=== PATIENT | male | born 1945 | race Caucasian/White ===

== ENCOUNTER → 2016-09-25 | Outpatient (CLI) | payer MEDICARE ==
[2016-09-25 09:16] LABS: EST GLOM FILT AFRICAN AMERICAN > 60 ml/min
== END | disposition home or self-care (01) ==
LOC: LAB 08:36 → CT 08:36
PROVIDERS: Radiology Diagnostic Radiology
DX: R42 Dizziness and giddiness (principal); E87.8 Other disorders of electrolyte and fluid balance, not elsewhere classified

== ENCOUNTER → 2016-10-09 | Outpatient (CLI) | payer MEDICARE | END | disposition home or self-care (01) | LOC: US 10-01 04:15 | DX: I65.23 Occlusion and stenosis of bilateral carotid arteries (principal) ==

== ENCOUNTER 2016-12-31 18:51 | Emergency (ER) | payer MEDICARE ==
[~2016-12-31] VITALS: Ht 177.8 cm; Wt 113.4 kg
[2016-12-31 19:28] LABS: BASO # 0.1 10*3/uL (0.0-0.1); BASO % 0.9 % (0.0-1.0); EOS % 10.4 % (1.0-4.0); HEMATOCRIT 43.9 % (42.0-52.0); HEMOGLOBIN 14.7 g/dl (14.0-18.0); LYMPH % 30.8 % (27.0-41.0); MEAN CORPUSCULAR HGB 31.1 pg (27.0-31.0); MEAN CORPUSCULAR HGB CONC 33.5 g/dl (33.0-37.0); MEAN PLATELET VOLUME 11.4 fl (9.6-12.3); MONO # 0.6 10*3/uL (0.1-1.0); MONO % 6.5 % (3.0-9.0); NEUT % 51.1 % (47.0-73.0); PLATELET COUNT AUTOMATED 184 10*3/uL (130-400); RED BLOOD COUNT 4.72 10*6/uL (4.50-5.90); RED CELL DISTRI WIDTH 12.7 % (0-14.5); WHITE BLOOD COUNT 9.7 10*3/uL (4.8-10.8)
[2016-12-31 19:41] LABS: ACT PARTIAL THROMBO TIME 25.6 SECONDS (20.8-31.5)
[2016-12-31 19:44] LABS: ALBUMIN 3.4 gm/dl (3.1-4.5); ALKALINE PHOSPHATASE 81 U/L (45-117); BUN 7 mg/dl (7-24); CHLORIDE 101 mmol/L (98-107); CREATININE 0.85 mg/dL (0.70-1.30); LIPASE 169 U/L (73-393); MAGNESIUM 2.2 mg/dL (1.5-2.1); SGOT/AST 13 IU/L (3-35); SGPT/ALT 21 U/L (12-78); SODIUM 135 mmol/L (136-145); TOTAL PROTEIN 7.3 gm/dL (6.4-8.2)
[2016-12-31 19:49] LABS: TROPONIN I < 0.015 ng/ml (<0.045)
[2016-12-31] MEDS ORDERED: ASPIR-TRIN325 MG PO (21:15)
[2016-12-31] MEDS ORDERED: CARDIZEM CD180 MG PO (21:33)
[2016-12-31] MEDS ORDERED: ZESTRIL20 MG PO (21:33)
[2016-12-31] MEDS ORDERED: BETAPACE80 MG PO (21:34)
[2016-12-31] MEDS ORDERED: CELEXA10 MG PO (21:35)
[2016-12-31] MEDS ORDERED: LANOXIN250 MCG PO (21:36)
[2016-12-31] MEDS ORDERED: TRAZODONE150 MG PO (21:36)
[2016-12-31] MEDS ORDERED: OMEPRAZOLE40 MG PO (21:37)
[2016-12-31] MEDS ORDERED: SIMVASTATIN40 MG PO (21:38)
[2016-12-31] MEDS ORDERED: XANAX XR0.5 MG PO (21:40)
[2016-12-31 22:00] LABS: BILIRUBIN NEGATIVE (NEGATIVE); BLOOD NEGATIVE (NEGATIVE); CLARITY CLEAR (CLEAR); COLOR YELLOW (YELLOW); GLUCOSE TRACE (NEGATIVE); KETONE NEGATIVE (NEGATIVE); LEUKO ESTERASE TRACE (NEGATIVE); NITRITE NEGATIVE (NEGATIVE); PH 5.5 (5.0-9.0); SPECIFIC GRAVITY 1.015 (1.005-1.030); UROBILINOGEN 0.2 E.U./dl (0.2-1.0)
[2016-12-31 22:02] VITALS: BP 152/64
[2016-12-31 22:07] LABS: BACTERIA TRACE; MUCOUS 2+
== END 2016-12-31 22:04 | disposition short-term general hospital (02) ==
LOC: ED 18:51
PROVIDERS: Emergency Medicine
DX: I63.9 Cerebral infarction, unspecified (principal); Z90.49 Acquired absence of other specified parts of digestive tract; Z95.1 Presence of aortocoronary bypass graft; Z98.890 Other specified postprocedural states; Z79.82 Long term (current) use of aspirin; Z79.899 Other long term (current) drug therapy

== ENCOUNTER → 2017-01-05 | Outpatient (CLI) | payer MEDICARE ==
[~2017-01-05] MED LIST: ASPIR-TRIN325 MG PO; BETAPACE80 MG PO; CARDIZEM CD180 MG PO; CELEXA10 MG PO; LANOXIN250 MCG PO; OMEPRAZOLE40 MG PO; SIMVASTATIN40 MG PO; TRAZODONE150 MG PO; XANAX XR0.5 MG PO; ZESTRIL20 MG PO
--- NOTE | ~2017-01-05 | HM ---
[place], [place] HOLTER MONITOR REPORT NAME: [facility]: [id number] UNIT #: [id number] ROOM: DOCTOR: CARLTON HUITRON MD BIRTHDATE: [birth year] DOS: A 48-hour Holter monitor repot. Study was recorded from January 05 through to 01/07/2017. The recording was analyzed. INDICATIONS: Possible atrial fibrillation. FINDINGS: The patient was recorded by Holter device for 48 hours. He was in sinus rhythm throughout the examination. The average heart rate was 50 beats per minute and heart rates varied from 40 to 82 beats per minute while the recording was running. The patient had rare premature ventricular contractions with rare couplets and a single triplet recorded. No ventricular tachycardia was seen. Occasional premature atrial contractions were recorded. Rare atrial couplets were seen. No SVT was recorded. No atrial fibrillation was recorded. No prolonged pauses were seen. No diary was returned. IMPRESSION: Sinus bradycardia with an average heart rate of 50 beats per minute. No significant ventricular or supraventricular arrhythmias recorded. No atrial fibrillation recorded. No diary returned. CARLTON HUITRON MD CM:HOLTER:HOLTER MONITOR REPORT 33 30 EMERSON HUITRON MD
== END | disposition home or self-care (01) ==
LOC: CARD 08:10
DX: I48.91 Unspecified atrial fibrillation (principal)

== ENCOUNTER → 2019-09-30 | Outpatient (CLI) | payer MEDICARE | END | disposition home or self-care (01) | LOC: COVID19 08:12 | DX: R50.9 Fever, unspecified (principal); Z20.828 Contact with and (suspected) exposure to other viral communicable diseases ==

== ENCOUNTER 2020-03-19 13:01 | Inpatient (IN) | payer MEDICARE ==
[~2020-03-19] VITALS: Ht 177.8 cm; Wt 99.9 kg
[2020-03-19 13:02] VITALS: BP 122/71
[2020-03-19 13:41] LABS: BASO % 0.3 % (0.0-1.0); EOS # 0.1 10*3/uL (0.0-0.4); EOS % 0.8 % (1.0-4.0); HEMATOCRIT 35.8 % (42.0-52.0); LYMPH # 0.7 10*3/uL (1.3-4.4); LYMPH % 7.4 % (27.0-41.0); MEAN CELL VOLUME 91.8 fl (80.0-94.0); MEAN CORPUSCULAR HGB 29.7 pg (27.0-31.0); MEAN CORPUSCULAR HGB CONC 32.4 g/dl (33.0-37.0); MEAN PLATELET VOLUME 10.6 fl (9.6-12.3); MONO # 0.5 10*3/uL (0.1-1.0); MONO % 5.3 % (3.0-9.0); NEUT # 8.1 10*3/uL (2.3-7.9); NEUT % 85.8 % (47.0-73.0); PLATELET COUNT AUTOMATED 230 10*3/uL (130-400); RED CELL DISTRI WIDTH 15.4 % (0-14.5); WHITE BLOOD COUNT 9.5 10*3/uL (4.8-10.8)
[2020-03-19] MEDS ORDERED: NEURONTIN600 MG PO (13:43)
[2020-03-19] MEDS ORDERED: LIPITOR80 MG PO (13:44)
[2020-03-19] MEDS ORDERED: ELIQUIS5 M1 PO (13:44)
[2020-03-19] MEDS ORDERED: ZESTRIL2.5 MG PO (13:45)
[2020-03-19] MEDS ORDERED: PROTONIX IV40 MG IV (13:47)
[2020-03-19] MEDS ORDERED: ALDACTONE25 M1 PO (13:48)
[2020-03-19] MEDS ORDERED: Mysoline50 MG PO (13:48)
[2020-03-19] MEDS ORDERED: ZOLPIDEM10 MG PO (13:49)
[2020-03-19] MEDS ORDERED: TOPROL XL25 MG PO (13:51)
[2020-03-19 13:52] LABS: ALBUMIN 2.5 gm/dl (3.1-4.5); ALKALINE PHOSPHATASE 123 U/L (45-117); BUN 18 mg/dl (7-24); CHLORIDE 103 mmol/L (98-107); CREATININE 0.72 mg/dL (0.70-1.30); POTASSIUM 3.5 mmol/L (3.5-5.1); SGOT/AST 81 IU/L (3-35); SGPT/ALT 38 U/L (12-78); SODIUM 135 mmol/L (136-145); TOTAL PROTEIN 6.9 gm/dL (6.4-8.2)
[2020-03-19] MEDS ORDERED: SYNTHROID25 MCG PO (13:56)
[2020-03-19] MEDS ORDERED: ZOLOFT100 MG PO (13:57)
[2020-03-19] MEDS ORDERED: MOVE FREE ULTR1 EAC2 PO (13:58)
[2020-03-19] MEDS ORDERED: GLUCOTROL10 MG PO (13:59)
[2020-03-19 14:04] LABS: TROPONIN I 0.411 ng/ml (<0.045)
[2020-03-19] MEDS ORDERED: VITAMIN D350 MC3 PO (14:06)
[2020-03-19] MEDS ORDERED: LASIX20 MG PO (14:07)
[2020-03-19] MEDS ORDERED: HYDROCODON-ACE1 EACH PO (14:08)
[2020-03-19 15:13] VITALS: BP 128/50
[2020-03-19 16:32] VITALS: BP 122/54
[2020-03-19 17:13] VITALS: BP 113/72
[2020-03-19 18:53] VITALS: BP 126/51
[2020-03-20] VITALS (14 sets, daily range): BP systolic 91–127; BP diastolic 25–72
[2020-03-20 18:23] LABS: ABG BASE EXCESS 2.3 mmol/L (-2.0-2.0); ARTERIAL BLOOD GAS PH 7.446 (7.35-7.45)
[2020-03-21] VITALS: BP 110/46
[2020-03-21 07:33] LABS: HEMATOCRIT 36.6 % (42.0-52.0); MEAN CELL VOLUME 92.2 fl (80.0-94.0); MEAN CORPUSCULAR HGB 29.5 pg (27.0-31.0); MEAN PLATELET VOLUME 10.7 fl (9.6-12.3); PLATELET COUNT AUTOMATED 257 10*3/uL (130-400); RED BLOOD COUNT 3.97 10*6/uL (4.50-5.90); WHITE BLOOD COUNT 10.7 10*3/uL (4.8-10.8)
[2020-03-21 08:00] VITALS: BP 122/60
[2020-03-21 08:04] LABS: ALBUMIN 2.3 gm/dl (3.1-4.5); BUN 21 mg/dl (7-24); CHLORIDE 101 mmol/L (98-107); POTASSIUM 3.5 mmol/L (3.5-5.1); SGOT/AST 87 IU/L (3-35); SGPT/ALT 39 U/L (12-78); SODIUM 135 mmol/L (136-145)
[2020-03-21 08:09] LABS: ALKALINE PHOSPHATASE 127 U/L (45-117); CPK 310 U/L (39-308); LDH 360 U/L (87-241); TOTAL PROTEIN 6.9 gm/dL (6.4-8.2)
[2020-03-21 08:40] LABS: BURR CELLS MODERATE; PLATELET SUFFICIENCY NORMAL (NORMAL); POLYCHROMASIA SLIGHT; SCHISTOCYTES FEW; TOTAL CELLS COUNTED 100 #CELLS
[2020-03-21 12:00] VITALS: BP 120/60
[2020-03-21 16:00] VITALS: BP 95/49
[2020-03-21 20:00] VITALS: BP 119/93
[2020-03-22] VITALS: BP 102/33
[2020-03-22 06:12] LABS: BASO % 0.1 % (0.0-1.0); EOS % 0.1 % (1.0-4.0); HEMATOCRIT 35.4 % (42.0-52.0); LYMPH # 0.7 10*3/uL (1.3-4.4); LYMPH % 4.8 % (27.0-41.0); MEAN CELL VOLUME 91.7 fl (80.0-94.0); MEAN CORPUSCULAR HGB 29.8 pg (27.0-31.0); MEAN CORPUSCULAR HGB CONC 32.5 g/dl (33.0-37.0); MEAN PLATELET VOLUME 10.8 fl (9.6-12.3); MONO # 0.8 10*3/uL (0.1-1.0); MONO % 5.6 % (3.0-9.0); NEUT # 12.2 10*3/uL (2.3-7.9); NEUT % 88.9 % (47.0-73.0); PLATELET COUNT AUTOMATED 251 10*3/uL (130-400); RED BLOOD COUNT 3.86 10*6/uL (4.50-5.90); WHITE BLOOD COUNT 13.7 10*3/uL (4.8-10.8)
[2020-03-22 06:48] LABS: ALBUMIN 2.2 gm/dl (3.1-4.5); BUN 25 mg/dl (7-24); CHLORIDE 102 mmol/L (98-107); POTASSIUM 3.3 mmol/L (3.5-5.1); SGPT/ALT 53 U/L (12-78); SODIUM 137 mmol/L (136-145)
[2020-03-22 06:53] LABS: ALKALINE PHOSPHATASE 135 U/L (45-117); CREATININE 0.59 mg/dL (0.70-1.30); LDH 406 U/L (87-241); SGOT/AST 119 IU/L (3-35); TOTAL PROTEIN 6.5 gm/dL (6.4-8.2)
[2020-03-22 07:02] LABS: CPK 408 U/L (39-308)
[2020-03-22 08:00] VITALS: BP 100/58
[2020-03-22 12:00] VITALS: BP 112/71
[2020-03-22 16:00] VITALS: BP 101/61
[2020-03-22 20:00] VITALS: BP 104/55
[2020-03-23] VITALS: BP 112/45
[2020-03-23 06:44] LABS: BASO % 0.1 % (0.0-1.0); EOS % 0.1 % (1.0-4.0); HEMATOCRIT 35.2 % (42.0-52.0); LYMPH # 0.6 10*3/uL (1.3-4.4); LYMPH % 5.4 % (27.0-41.0); MEAN CORPUSCULAR HGB 28.9 pg (27.0-31.0); MEAN CORPUSCULAR HGB CONC 31.8 g/dl (33.0-37.0); MEAN PLATELET VOLUME 11.2 fl (9.6-12.3); MONO # 0.6 10*3/uL (0.1-1.0); MONO % 5.1 % (3.0-9.0); NEUT # 10.2 10*3/uL (2.3-7.9); NEUT % 88.4 % (47.0-73.0); PLATELET COUNT AUTOMATED 243 10*3/uL (130-400); RED BLOOD COUNT 3.87 10*6/uL (4.50-5.90); WHITE BLOOD COUNT 11.5 10*3/uL (4.8-10.8)
[2020-03-23 07:16] LABS: ALBUMIN 2.1 gm/dl (3.1-4.5); BUN 28 mg/dl (7-24); CHLORIDE 102 mmol/L (98-107); CREATININE 0.61 mg/dL (0.70-1.30); POTASSIUM 3.3 mmol/L (3.5-5.1); SGOT/AST 98 IU/L (3-35); SGPT/ALT 46 U/L (12-78); SODIUM 137 mmol/L (136-145); TOTAL PROTEIN 6.2 gm/dL (6.4-8.2)
[2020-03-23 07:19] LABS: ALKALINE PHOSPHATASE 127 U/L (45-117); LDH 437 U/L (87-241)
[2020-03-23 07:40] LABS: CPK 228 U/L (39-308)
[2020-03-23 08:00] VITALS: BP 101/50
[2020-03-23 12:00] VITALS: BP 108/50
[2020-03-23 16:00] VITALS: BP 102/50
[2020-03-23 16:53] LABS: ABG BASE EXCESS 5.2 mmol/L (-2.0-2.0); ARTERIAL BLOOD GAS PH 7.464 (7.35-7.45)
[2020-03-23 20:00] VITALS: BP 117/68
[2020-03-24] VITALS: BP 90/48
[2020-03-24 06:12] LABS: EOS # 0.1 10*3/uL (0.0-0.4); EOS % 0.8 % (1.0-4.0); HEMATOCRIT 33.5 % (42.0-52.0); LYMPH # 0.8 10*3/uL (1.3-4.4); LYMPH % 7.2 % (27.0-41.0); MEAN CELL VOLUME 91.3 fl (80.0-94.0); MEAN CORPUSCULAR HGB CONC 32.8 g/dl (33.0-37.0); MEAN PLATELET VOLUME 11.2 fl (9.6-12.3); MONO # 0.5 10*3/uL (0.1-1.0); MONO % 4.3 % (3.0-9.0); NEUT # 9.4 10*3/uL (2.3-7.9); NEUT % 87.1 % (47.0-73.0); PLATELET COUNT AUTOMATED 239 10*3/uL (130-400); RED BLOOD COUNT 3.67 10*6/uL (4.50-5.90); RED CELL DISTRI WIDTH 15.1 % (0-14.5); WHITE BLOOD COUNT 10.8 10*3/uL (4.8-10.8)
[2020-03-24 08:00] VITALS: BP 129/55
[2020-03-24 12:00] VITALS: BP 107/54
[2020-03-24 16:00] VITALS: BP 117/65
[2020-03-24 20:00] VITALS: BP 101/53
[2020-03-25] VITALS: BP 116/65
[2020-03-25 06:41] LABS: EOS # 0.2 10*3/uL (0.0-0.4); EOS % 1.2 % (1.0-4.0); HEMATOCRIT 35.2 % (42.0-52.0); LYMPH # 0.8 10*3/uL (1.3-4.4); MEAN CELL VOLUME 90.5 fl (80.0-94.0); MEAN CORPUSCULAR HGB 29.8 pg (27.0-31.0); MEAN PLATELET VOLUME 11.3 fl (9.6-12.3); MONO # 0.4 10*3/uL (0.1-1.0); MONO % 3.3 % (3.0-9.0); NEUT # 11.5 10*3/uL (2.3-7.9); NEUT % 88.8 % (47.0-73.0); PLATELET COUNT AUTOMATED 268 10*3/uL (130-400); RED BLOOD COUNT 3.89 10*6/uL (4.50-5.90); WHITE BLOOD COUNT 12.9 10*3/uL (4.8-10.8)
[2020-03-25 06:56] LABS: ALKALINE PHOSPHATASE 123 U/L (45-117); BUN 31 mg/dl (7-24); CHLORIDE 99 mmol/L (98-107); CREATININE 0.62 mg/dL (0.70-1.30); LDH 395 U/L (87-241); POTASSIUM 3.1 mmol/L (3.5-5.1); SGOT/AST 66 IU/L (3-35); SGPT/ALT 44 U/L (12-78); SODIUM 137 mmol/L (136-145); TOTAL PROTEIN 6.2 gm/dL (6.4-8.2)
[2020-03-25 08:00] VITALS: BP 118/70
[2020-03-25 12:00] VITALS: BP 121/73
[2020-03-25 16:00] VITALS: BP 116/72
[2020-03-25 18:52] LABS: BUN 30 mg/dl (7-24); CHLORIDE 100 mmol/L (98-107); CREATININE 0.69 mg/dL (0.70-1.30); POTASSIUM 3.4 mmol/L (3.5-5.1); SODIUM 138 mmol/L (136-145)
[2020-03-25 20:00] VITALS: BP 114/62
[2020-03-26] VITALS: BP 97/53
[2020-03-26 04:00] VITALS: BP 136/61
[2020-03-26 04:57] LABS: BILIRUBIN 1+ (Negative); BLOOD 3+ (Negative); CLARITY Clear (Clear); COLOR Dark Yellow (Yellow); GLUCOSE Negative (Negative); KETONE Negative (Negative); LEUKO ESTERASE Trace (Negative); NITRITE Negative (Negative); PH 5.5 (4.5-8.0); SPECIFIC GRAVITY 1.025 (1.001-1.030)
[2020-03-26 05:12] LABS: BACTERIA TRACE; MUCOUS TRACE; RBC 41-50 rbc/hpf (0-2)
[2020-03-26 06:32] LABS: BASO % 0.1 % (0.0-1.0); EOS # 0.1 10*3/uL (0.0-0.4); EOS % 0.8 % (1.0-4.0); LYMPH # 0.7 10*3/uL (1.3-4.4); LYMPH % 5.5 % (27.0-41.0); MEAN CELL VOLUME 91.1 fl (80.0-94.0); MEAN CORPUSCULAR HGB 29.4 pg (27.0-31.0); MEAN CORPUSCULAR HGB CONC 32.2 g/dl (33.0-37.0); MEAN PLATELET VOLUME 11.2 fl (9.6-12.3); MONO # 0.5 10*3/uL (0.1-1.0); MONO % 3.8 % (3.0-9.0); NEUT # 11.1 10*3/uL (2.3-7.9); NEUT % 89.2 % (47.0-73.0); PLATELET COUNT AUTOMATED 258 10*3/uL (130-400); RED BLOOD COUNT 3.95 10*6/uL (4.50-5.90); WHITE BLOOD COUNT 12.5 10*3/uL (4.8-10.8)
[2020-03-26 07:01] LABS: ALBUMIN 1.9 gm/dl (3.1-4.5); BUN 31 mg/dl (7-24); CHLORIDE 102 mmol/L (98-107); CREATININE 0.53 mg/dL (0.70-1.30); LDH 428 U/L (87-241); POTASSIUM 3.2 mmol/L (3.5-5.1); SGOT/AST 60 IU/L (3-35); SGPT/ALT 40 U/L (12-78); SODIUM 138 mmol/L (136-145)
[2020-03-26 07:03] LABS: ALKALINE PHOSPHATASE 123 U/L (45-117); TOTAL PROTEIN 5.8 gm/dL (6.4-8.2)
[2020-03-26 08:00] VITALS: BP 101/67
[2020-03-26 12:00] VITALS: BP 94/56
[2020-03-26 16:00] VITALS: BP 111/49
[2020-03-26 21:30] VITALS: BP 101/42
[2020-03-27 06:19] LABS: BASO % 0.1 % (0.0-1.0); EOS # 0.2 10*3/uL (0.0-0.4); EOS % 1.5 % (1.0-4.0); HEMATOCRIT 36.9 % (42.0-52.0); LYMPH # 0.8 10*3/uL (1.3-4.4); LYMPH % 5.5 % (27.0-41.0); MEAN CELL VOLUME 90.4 fl (80.0-94.0); MEAN CORPUSCULAR HGB 28.7 pg (27.0-31.0); MEAN CORPUSCULAR HGB CONC 31.7 g/dl (33.0-37.0); MEAN PLATELET VOLUME 11.7 fl (9.6-12.3); MONO # 0.6 10*3/uL (0.1-1.0); MONO % 4.3 % (3.0-9.0); NEUT # 12.1 10*3/uL (2.3-7.9); NEUT % 87.9 % (47.0-73.0); PLATELET COUNT AUTOMATED 293 10*3/uL (130-400); RED BLOOD COUNT 4.08 10*6/uL (4.50-5.90); RED CELL DISTRI WIDTH 14.9 % (0-14.5); WHITE BLOOD COUNT 13.7 10*3/uL (4.8-10.8)
[2020-03-27 08:00] VITALS: BP 90/64
[2020-03-27 09:17] VITALS: BP 100/48
[2020-03-27 12:00] VITALS: BP 138/86
[2020-03-27 16:00] VITALS: BP 111/59
[2020-03-27 20:03] VITALS: BP 112/57
[2020-03-28] VITALS: BP 92/54
[2020-03-28 04:00] VITALS: BP 90/50
[2020-03-28 06:03] LABS: BASO % 0.1 % (0.0-1.0); EOS # 0.7 10*3/uL (0.0-0.4); EOS % 5.6 % (1.0-4.0); HEMATOCRIT 33.6 % (42.0-52.0); LYMPH # 0.7 10*3/uL (1.3-4.4); LYMPH % 5.7 % (27.0-41.0); MEAN CELL VOLUME 89.8 fl (80.0-94.0); MEAN CORPUSCULAR HGB 29.4 pg (27.0-31.0); MEAN CORPUSCULAR HGB CONC 32.7 g/dl (33.0-37.0); MEAN PLATELET VOLUME 11.9 fl (9.6-12.3); MONO # 0.5 10*3/uL (0.1-1.0); NEUT # 10.3 10*3/uL (2.3-7.9); NEUT % 84.2 % (47.0-73.0); PLATELET COUNT AUTOMATED 255 10*3/uL (130-400); RED BLOOD COUNT 3.74 10*6/uL (4.50-5.90); WHITE BLOOD COUNT 12.3 10*3/uL (4.8-10.8)
[2020-03-28 06:27] LABS: ALBUMIN 1.8 gm/dl (3.1-4.5); ALKALINE PHOSPHATASE 117 U/L (45-117); BUN 38 mg/dl (7-24); CHLORIDE 102 mmol/L (98-107); CREATININE 0.61 mg/dL (0.70-1.30); LDH 468 U/L (87-241); POTASSIUM 3.4 mmol/L (3.5-5.1); SGOT/AST 60 IU/L (3-35); SGPT/ALT 35 U/L (12-78); SODIUM 139 mmol/L (136-145); TOTAL PROTEIN 5.6 gm/dL (6.4-8.2)
[2020-03-28 08:00] VITALS: BP 113/56
[2020-03-28 12:00] VITALS: BP 90/45
[2020-03-28 16:08] VITALS: BP 91/65
[2020-03-28 20:00] VITALS: BP 98/52
[2020-03-29] VITALS: BP 109/48
[2020-03-29 00:26] VITALS: BP 109/48
[2020-03-29 07:40] LABS: ALBUMIN 1.8 gm/dl (3.1-4.5); BUN 45 mg/dl (7-24); CHLORIDE 103 mmol/L (98-107); POTASSIUM 3.7 mmol/L (3.5-5.1); SGOT/AST 65 IU/L (3-35); SGPT/ALT 34 U/L (12-78); SODIUM 140 mmol/L (136-145)
[2020-03-29 07:41] LABS: ALKALINE PHOSPHATASE 122 U/L (45-117)
[2020-03-29 08:00] VITALS: BP 161/88
== END 2020-03-29 14:30 | disposition hospice, home (50) | DRG 280 ==
LOC: ED 13:01 → 4E 14:24 → EDHOLD 14:24 → 5E 14:24 → 4E 03-20 14:14 → 5E 03-27 00:26
PROVIDERS: Emergency Medicine; Internal Medicine; Internal Medicine Critical Care Medicine; Student in an Organized Health Care Education/Training Program; ADMIT Internal Medicine; ATTEND Internal Medicine
PROC: XW033E5 Introduction of Remdesivir Anti-infective into Peripheral Vein, Percutaneous Approach, New Technology Group 5 (ICD-10-PCS; 2020-03-22)
PROC: 5A09457 Assistance with Respiratory Ventilation, 24-96 Consecutive Hours, Continuous Positive Airway Pressure (ICD-10-PCS; principal; 2020-03-24)
PROC: 5A09357 Assistance with Respiratory Ventilation, Less than 24 Consecutive Hours, Continuous Positive Airway Pressure (ICD-10-PCS; 2020-03-27)
PROC: 5A09357 Assistance with Respiratory Ventilation, Less than 24 Consecutive Hours, Continuous Positive Airway Pressure (ICD-10-PCS; 2020-03-28)
DX: I21.3 ST elevation (STEMI) myocardial infarction of unspecified site (principal); J96.00 Acute respiratory failure, unspecified whether with hypoxia or hypercapnia; E43 Unspecified severe protein-calorie malnutrition; I50.23 Acute on chronic systolic (congestive) heart failure; F33.0 Major depressive disorder, recurrent, mild; J84.9 Interstitial pulmonary disease, unspecified; I48.21 Permanent atrial fibrillation; D68.59 Other primary thrombophilia; E87.6 Hypokalemia; R62.7 Adult failure to thrive; M54.5 Low back pain; E78.5 Hyperlipidemia, unspecified; I11.0 Hypertensive heart disease with heart failure; E11.42 Type 2 diabetes mellitus with diabetic polyneuropathy; E66.01 Morbid (severe) obesity due to excess calories; I25.5 Ischemic cardiomyopathy; I25.10 Atherosclerotic heart disease of native coronary artery without angina pectoris; E03.9 Hypothyroidism, unspecified; E11.65 Type 2 diabetes mellitus with hyperglycemia; Z20.828 Contact with and (suspected) exposure to other viral communicable diseases; G47.00 Insomnia, unspecified; F41.1 Generalized anxiety disorder; M54.9 Dorsalgia, unspecified; Z51.5 Encounter for palliative care; G89.29 Other chronic pain; T38.0X5A Adverse effect of glucocorticoids and synthetic analogues, initial encounter; Y92.89 Other specified places as the place of occurrence of the external cause; Z79.01 Long term (current) use of anticoagulants; Z90.49 Acquired absence of other specified parts of digestive tract; Z86.73 Personal history of transient ischemic attack (TIA), and cerebral infarction without residual deficits; Z91.81 History of falling; Z95.1 Presence of aortocoronary bypass graft; Z95.5 Presence of coronary angioplasty implant and graft; Z79.899 Other long term (current) drug therapy; Z68.32 Body mass index [BMI] 32.0-32.9, adult